=== PATIENT | female | born 1945 | race Caucasian/White ===

== ENCOUNTER → 2017-09-20 | Outpatient (CLI) | payer MEDICARE ==
--- NOTE | 2017-09-20 13:05 | Diagnostic Imaging Report ---
INDICATION: Cough, abnormal weight loss. COMPARISON: None available. TECHNIQUE: Frontal and lateral radiographs of the chest dated 09/20/2017. FINDINGS: The cardiac silhouette is within normal limits. No significant pulmonary vascular congestion. The lungs are hyperinflated with flattening of diaphragm. The lungs, however are clear of focal pulmonary opacity. No pleural effusion. No pneumothorax. No acute osseous abnormality. IMPRESSION: Pulmonary hyperinflation, likely related to air trapping. No additional superimposed acute cardiopulmonary abnormality. Dictated by: Dictated on workstation # [id number]
== END ==
LOC: RAD 12:32
PROVIDERS: ATTEND Nurse Practitioner Family
DX: J98.11 Atelectasis (principal)
CPT/HCPCS: 71046

== ENCOUNTER → 2017-10-03 | Outpatient (CLI) | payer MEDICARE ==
[2017-10-03 16:02] LABS: ABG BASE EXCESS 1.2 MMOL/L (-2.5-2.5); ABG OXYGEN SATURATION 97 % (94-100); ABG PCO2 40 MMHG (35-45); ABG PH 7.41 (7.37-7.43); ABG PO2 72 MMHG (79-93); ABG TCO2 26.9 MMOL/L (21.0-31.0)
[2017-10-03 16:07] LABS: ALLENS TEST YES-POS; INSPIRED O2 ROOM AIR; VENTILATOR NO
[2017-10-03 16:08] LABS: PATIENT TEMP 96.3
[2017-10-04 05:35] LABS: ALTERNARIA MOLD RAST <0.35 kU/L (<0.35); RAGWEED RAST <0.35 kU/L (<0.35)
== END ==
LOC: RT 14:46
PROVIDERS: ATTEND Nurse Practitioner Family
DX: J44.9 Chronic obstructive pulmonary disease, unspecified (principal); J30.9 Allergic rhinitis, unspecified
CPT/HCPCS: 36415; 36600; 82785; 82805; 86003

== ENCOUNTER → 2017-11-01 | Outpatient (CLI) | payer MEDICARE ==
[~2017-11-01] MED LIST: RT-ALBUTEROL SULF 2.5 MG/3 ML PRE-MIX VIAL INH ONE; RT-ALBUTEROL SULF 2.5 MG/3 ML PRE-MIX VIAL ONE
--- NOTE | 2017-11-01 14:42 | Diagnostic Imaging Report ---
PROCEDURE: CT chest without contrast. TECHNIQUE: Multiple contiguous axial images were obtained through the chest without the use of intravenous contrast. INDICATION: Chronic cough and COPD. Comparison is made with chest radiograph from 09/20/2017. No axillary lymphadenopathy is seen. Hilar and mediastinal evaluation is limited without intravenous contrast. No pericardial or pleural fluid is identified. The central airways are patent. No parenchymal mass, nodule or infiltrate is seen. The lungs are hyperinflated consistent with COPD. The upper abdomen is unremarkable. IMPRESSION: COPD. No thoracic lymphadenopathy or pulmonary mass is detected. Dictated by: Dictated on workstation # [id number]
== END ==
LOC: RT 13:37
PROVIDERS: ATTEND Nurse Practitioner Family
DX: J44.9 Chronic obstructive pulmonary disease, unspecified (principal); R05 Cough; R06.00 Dyspnea, unspecified; J30.9 Allergic rhinitis, unspecified; Z72.0 Tobacco use
CPT/HCPCS: 71250; 94060; 94726; 94729